=== PATIENT | female | born 1985 | race Caucasian/White ===

== ENCOUNTER 2021-02-24 11:10 | Emergency (ER) | payer OTHER ==
[2021-02-24] MEDS ORDERED: MEDROL DOSEPAK 24 MG PO (13:10)
[2021-02-24] MEDS ORDERED: NORFLEX 100 MG100 MG PO (13:10)
== END 2021-02-24 14:07 | disposition home or self-care (01) ==
LOC: ER1 11:10
DX: G89.11 Acute pain due to trauma (principal); M54.5 Low back pain; I10 Essential (primary) hypertension; F17.210 Nicotine dependence, cigarettes, uncomplicated; Z90.710 Acquired absence of both cervix and uterus; Z88.8 Allergy status to other drugs, medicaments and biological substances
CPT/HCPCS: 72131; 72192; 96372; 99283; J1100; J1885